=== PATIENT | male | born 1990 | race Caucasian/White ===

== ENCOUNTER 2025-04-26 15:09 | Emergency (ER) | payer OTHER, SELFPAY ==
--- OUTSIDE RECORDS SUMMARY | 2006-11-27 03:03 | XMS_ITS | Continuity of Care Document ---
Author Organization [facility] Address [address] [place] [address] [address] [place] [address] Phone Care Team Providers [employer] Consultant Name Role Phone Delgado OD, Marquis Unavailable Unavailable Procedures Procedure Date Eye Exam Established Pt Advance Directives Directive Yes / No Effective Date File Name No Information Encounters Encounter Description Practice Location Reason(s) For Visit Diagnoses Date Provider Providers Copied on Encounter [facility], [address], [place], [place], [id number], [place] tel:[phone] SEC [facility] No Information November-0 5-200 7 Delgado OD Marquis. [address] [facility] , [address], [place], [address], [place]. tel:[phone] Referring Provider: Marya Stewart, [address] [facility] [address], [place], [place], [facility]. tel:[phone] Family History Family Member Type Diagnosis Age At Onset No Information Payers Payer name Insurance type Covered alliance party ID Authoriza tion(s) No Information Social History Type Description Quantity Date Captured Comments Sex Male Smoking Status No Information Chief Complaint And Reason For Visit No Information Reason For Referral Reason For Referral No Information History Of Present Illness Encounter Date Complaint History Of Prese nt Illness No Information Functional Status Date Functional Assessmen t No Information Instructions Date Instruction Additional Infor mation No Information Assessments Type Assessment Date No Information Patient Care Teams Name Effective Dates (start - stop) Status Members No Information
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
[2025-04-26] MEDS: KETOROLAC 30 MG/ML VIAL (*BKC) IM (15:42)
[2025-04-26] MEDS: CYCLOBENZAPRINE HCL 10 MG TABLET PO (15:42)
--- OUTSIDE RECORDS SUMMARY | 2025-04-26 16:02 | XMS_ITS | Clinical Summary ---
Author Organization [facility] Building [facility] Address [address] [place] [address] Care Team Providers Care Color Dipper Name Role Phone Shen Bartlett MD Primary Care Provider Allergies Active Allergy Reactions Criticality Noted Date Comments Penicillins Other (See comments) Low 10/07/2021 Medications albuterol HFA (PROVENTIL HFA,VENTOLIN HFA,PROAIR HFA) 90 mcg/actuation inhaler albuterol sulfate HFA 90 mcg/actuation aerosol inhaler INHALE 2 PUFFS BY MOUTH EVERY 4 HOURS Active silver sulfadiazine (SILVADENE, SSD) 1 % cream Active dextroamphetamine -amphetamine (ADDERALL) 30 mg tablet dextroamphetam ine-amphetamin e 30 mg tablet TAKE 1 TABLET BY MOUTH EVERY DAY Active Active Problems Problem Noted Date Diagnosed Date No diagnosis on [place] 06/05/2024 Morbid (severe) obesity due to excess calories 0 01/18/2024 Body mass index 40.0-44.9, adult ([facility]) 01/17 CHINMAY (obstructive sleep apnea) 08/24/2022 Knee pain 04/18/2022 Abscess of lower extremity 04/18/2022 Anxiety disorder 04/18/2022 Attention deficit hyperactiv ity disorder, predominantly inattentive type 04/18/2022 Carbuncle of lower extremity, excluding foot Prepatellar bursitis 04/18/2022 Gastroesophageal reflux disease 04/18/2022 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 We will see him back next month for hopefully his final visit before submission. Assessment & Plan (06/11/2022 10:14 AM SALES CONTRACTOR): All the patient has left to do is obtain his sleep study. He is getting ready for the of a child which has slowed the process of him being able to complete all the tasks in preparation for weight loss surgery. We will continue to see him monthly. He will continue to work with the dietitian as well as attend the monthly support group meetings. We will see him back next month to reassess. Assessment & Plan (05/21/2022 11:39 AM CDT): Continue small frequent meals. Continue to work with the dietitian. Continue exercise regimen of 30 minutes a cardiovascular exercise 3 times a week. We will encourage him to continue to attend the monthly support group meetings. We will have him obtain PFT testing and order laboratory values. The preoperative diet has been discussed with the patient. All questions answered. Assessment & Plan (04/21/2022 10:54 AM CDT): We will set the patient up for surgery. Preoperative diet and handout has been given. All questions answered. He will have his EGD today. No further questions at this time. Assessment & Plan (03/17/2022 4:48 PM CDT): We will plan for sleeve gastrectomy now that he has gone his 6 months. Pre- admission testing will be sent in. We have given him his preoperative clear liquid diet handout. He will continue small frequent meals. Goal calorie intake of 1600. Continue exercise regimen shooting for 30 minutes 3 times a week of cardiovascular work. Continue to attend the monthly support group meetings. Hospital length of stay has been discussed. All questions answered. Assessment & Plan (02/19/2022 10:02 AM CDT): Continue small frequent meals. Continue exercise as tolerates. Continue to work with the dietitian. We will see him back next month to follow-up his progress Assessment & Plan (12/23/2021 11:02 AM CDT): The patient will continue with small frequent meals. He will continue cardiovascular exercise 3 times a week. He will keep his follow-ups with the dietitian. We will see him back next month to reassess. Assessment & Plan (11/11/2021 11:09 AM CDT): Continue small frequent meals. Continue exercise regimen. Keep scheduled follow- up appointment with the dietitian, psych and physical therapy. We will see him back next month to reassess Assessment & Plan (10/07/2021 9:47 AM CDT): Given their past success the patient would be a good candidate for weight loss surgery. We have gone over options such as the bypass and sleeve gastrectomy. We have also discussed risks and benefits such as blood clots, staple line leak as well as new or worsening reflux symptoms. They are in understanding. During this time will have them seen by the dietitian and psych. As we get closer to the time of surgery we will set him up for an EGD to look for hiatal hernia, H pylori or other gastric pathology. We will see them back in 4 weeks. They are in understanding of the plan. We have gone over small frequent meals shooting for a goal calorie intake of around 1600 spread throughout 4-5 meals. We have discussed not eating late at night. We have discussed cardiovascular exercise. Greater than 15 minutes was spent in counseling the patient on diet and exercise with regards to her morbid obesity. Asthma 07/04/2019 Encounters Date Type Department Care Team Description 04/23/2025 11:00 AM CDT Office Visit [facility] at [address] [place] [address] Christen Fierro MD CHINMAY (obstructive sleep apnea) (Primary Dx); Hypersomnia; Morbid (severe) obesity due to excess calories (HCC) 04/13/2025 1:00 PM CDT Clinical Support [facility] [address] [place] [phone] Morbid obesity (HCC) (Primary Dx); BMI 40.0-44.9, adult (HCC); CHINMAY (obstructive sleep apnea); Low back pain, unspecified back pain laterality, unspecified chronicity, unspecified whether sciatica present; Arthralgia, unspecified joint 03/16/2025 10:00 AM CDT Clinical Support [facility] [address] [place] [phone] Morbid obesity (HCC) (Primary Dx); BMI 40.0-44.9, adult (HCC); CHINMAY (obstructive sleep apnea); Low back pain, unspecified back pain laterality, unspecified chronicity, unspecified whether sciatica present; Arthralgia, unspecified joint 02/16/2025 10:00 AM CDT Clinical Support [facility] [address] [place] [id number] Morbid obesity (HCC) (Primary Dx); BMI 40.0-44.9, adult (HCC); Obstructive sleep apnea; Low back pain, unspecified back pain laterality, unspecified chronicity, unspecified whether sciatica present; Arthralgia, unspecified joint from Last 3 Months Medical History Medical History Date Comments Adhd Asthma Joint pain Low back pain Sleep apnea Morbid obesity (HCC) Family History Medical History Relation Name Comments No Known Problems Daughter Diabetes Father Alessandro Sleep apnea Father Alessandro No Known Problems Son Relation Name Status Comments Daughter Alive Father Alessandro Alive Mother Alive Son Alive Social History Tobacco Use Types Packs/Day Years Used Date Smoking Tobacco: Never Passive Smoke Exposure: Never Smokeless Tobacco: Never Tobacco Cessation:Counseling Given: Not Answered AUDIT-C Answer Date Recorded Q1: How often do you have a drink containing alc ohol? Monthly or less 05/03/2024 Q2: How many drinks containi ng alcohol do you have on a typical day when you are drinking? 1 or 2 05/03/2024 Q3: How often do you have si x or more drinks on one occasion? Never 05/03/2024 Sex and Gender Information Value Date Recorded Sex Assigned at Not on file Legal Sex Male 11:17 PM SALES CONTRACTOR Gender Identity Not on file Sexual Orientation Not on file Obstetrics History Last Filed Vital Signs Vital Sign Reading Time Taken Comments Blood Pressure 125/83 04/23/2025 10:59 AM CDT Pulse 77 04/23/2025 10:59 AM CDT Temperature 36.3 C (97.3 F) 08/27/2022 9:12 AM SALES CONTRACTOR Respiratory Rate 18 12/13/2023 10:10 AM CDT Oxygen Saturation 95% 04/23/2025 10:59 AM CDT Inhaled Oxygen Concentration - - Weight 125.6 kg (277 lb) 04/23/2025 10:59 AM CDT Height 177.8 cm (5' 10) 04/23/2025 10:59 AM CDT Body Mass Index 39.75 04/23/2025 10:59 AM CDT Plan of Treatment Health Maintenance Due Date Last Done Comments Depression Screening 1990 Hepatitis C Screening 1990 Varicella Vaccines (1 of 2 - 13+ 2-dose series) 2003 Regular Well Visit/Exam 18-64 2008 Pneumococcal vaccine <65 (1 of 2 - PCV) 2009 DTaP/Tdap/Td Vaccine (7 - Td or Tdap) 03/14/2012 03/14/2002, 11/23/1995, 11/30/1991, Additional history exists HPV Vaccines (3 - Male 3-dos e series) 06/21/2013 03/29/2013, 11/28/2012 Covid-19 Vaccine (2 - 2024-2 6 season) 2025 10/01/2020 Influenza Vaccine (#1) 2025 , 06/15/2019, 04/18/2018, Additional history exists Hepatitis B Screening Completed 02/27/1997 , 09/05/1996, 08/01/1996 Insurance [facility] Advance Directives For more information, please contact: [phone] * Full Code (Latest Code Status on File) Date Activated Date Inactivated Comments 04/21/2022 1:03 PM 04/21/2022 6:09 PM * Full Code Date Activated Date Inactivated Comments 04/21/2022 1:03 PM 04/21/2022 1:03 PM Care Teams Color Dipper Relationship Specialty Start Date End Date Shen Bartlett MD [address] [place] [address] PCP - General Internal Medicine 09/04/21
[2025-04-26 16:20] VITALS: BP 140/78; PULSE 98; RESP 17; TEMP 36.6; O2SAT 98
== END 2025-04-26 17:40 | disposition home or self-care (01) ==
LOC: ANHED 16:00
PROVIDERS: Emergency Provider Nurse Practitioner Family; PCP Internal Medicine
DX: S29.012A Strain of muscle and tendon of back wall of thorax, initial encounter (principal); V43.53XA Car driver injured in collision with pick-up truck in traffic accident, initial encounter
CPT/HCPCS: 72072; 96372; 99283; A9270; J1885